=== PATIENT | female | born 1975 | race Caucasian/White ===

== ENCOUNTER 2018-02-16 17:45 | Emergency (ER) | payer MEDICAID, SELFPAY ==
[2018-02-16 17:45] VITALS: BP 159/93; PULSE 135; RESP 18; TEMP 37.2; O2SAT 99; BMI 30.8
[2018-02-16 17:52] VITALS: BP 150/71; PULSE 118; RESP 14; O2SAT 99
[2018-02-16 18:50] LABS: Absolute Neutrophil Count 5.4 X10^3/uL (2.0-7.7); Basophil# 0.04 X10^3/uL; Basophil% 0.4 % (0-1); Eosinophil# 0.36 X10^3/uL; Hematocrit 40.3 % (37-47); Hemoglobin 13.3 g/dl (12.0-15.0); Lymphocyte % 28.1 % (19-41); Mean Corpuscular Hgb 29.8 pg (27.0-32.0); Mean Corpuscular Volume 90.4 fL (81-99); Mean Platelet Vol. 10.2 fl (6.2-12.0); Monocyte# 0.54 X10^3/uL; Monocyte% 6.1 % (0-10); Neutrophil # 5.43 X10^3/uL (2.7-7.7); Neutrophil % 61.2 % (47-70); Platelet Count 367 K/mm3 (150-450); RBC Distribution Width CV 12.2 % (11.6-14.6); Red Blood Count 4.46 M/mm3 (4.2-5.4); White Blood Count 8.9 K/mm3 (4.4-11.0)
[2018-02-16 18:53] LABS: AST(SGOT) 16 U/L (15-37); Alanine Aminotransfer ALT/SGPT 31 U/L (13-56); Albumin, Serum 3.8 g/dL (3.2-5.0); Alkaline Phosphatase 93 U/L (45-117); Anion Gap 7 (5-15); BUN 14 mg/dL (7-18); BUN/Creat Ratio 14.8 RATIO (10-20); Calcium,Total 8.8 mg/dL (8.5-10.1); Chloride 112 mmol/L (98-107); Creatinine, Serum 0.95 mg/dL (0.55-1.02); EST Glomerular Filtration Rate 69 mL/min (>60); Est Glom Filt Rate - Afr Amer 84 mL/min (>60); Estimated Creatinine Clearance 56.54 ml/min; Glucose 102 mg/dL (74-106); Potassium 3.4 mmol/L (3.5-5.1); Protein, Total 7.8 g/dL (6.4-8.2); Sodium Level 142 mmol/L (136-145)
[2018-02-16 18:58] LABS: POSITIVE COUNT NO; POSITIVE DIFFERENTIAL NO; POSITIVE MORPHOLOGY NO
[2018-02-16 19:03] LABS: Pregnancy, Serum, hCG Quali. NEGATIVE Negative (0-9 Nonpreg)
[2018-02-16 19:05] LABS: Amphetamine Urine VISTA NEGATIVE (<1000 ng/mL); Barbiturate Urine VISTA NEGATIVE (< 200 ng/mL); Benzodiazepine Urine VISTA NEGATIVE (< 200 ng/mL); Cocaine Urine VISTA NEGATIVE (< 300 ng/mL); Ecstacy Urine VISTA NEGATIVE (< 500 ng/mL); Methadone Urine VISTA NEGATIVE (< 300 ng/mL); PCP Urine VISTA NEGATIVE (< 25 ng/mL); THC Urine VISTA NEGATIVE (< 50 ng/mL); Vista UDS pH Range 6
--- NOTE | 2018-02-16 20:02 | ED.VISSUMM ---
- ER Visit Summary Date of Service: 02/16/18 Chief Complaint: Depression History of Present Illness: The patient is a 42 F with a history of depression who was sent in by crisis. She states that she just could not cope anymore she made statements such as I did not feel like I wanted to live anymore. She stated everything is meaningless. However she is not suicidal she does not feel she is a risk to herself she had no suicidal plan. No thoughts of any harm to anyone else. Crisis center in for evaluation. Physical Examination: Heart rate 118 Resting comfortably no distress Heart regular tachycardia Lungs are clear Abdomen soft Alert Patient does appear depressed and has a blunted affect but denies suicidal or homicidal thoughts Test Results: Laboratory studies are unremarkable including urine drug screen and serum alcohol. Emergency Department Course and Treatment: She was evaluated by crisis here. We do not feel that she is actively suicidal or risk to herself but she does appear significantly depressed. Crisis will call her psychiatrist to try to arrange for a closer outpatient follow-up and will also set up outpatient follow-up with her therapist. We do believe the patient can safely be discharged home. She is calling for a ride. Treatment Plan: [] Disposition: Discharge Impression: Depression This note was generated with [employer] dictation software. It may contain incorrect words, spelling, and punctuation that were not noted in review of the chart prior to signing ED Disposition - Plan for ED Patient: Chief Complaint: Suicidal Referrals: Yeny Franks MD [Primary Care Provider] -
--- NOTE | 2018-02-16 20:04 | ED.DEP ---
ED Disposition - Plan for ED Patient: Chief Complaint: Suicidal Instructions: ED Depression Referrals: Yeny Franks MD [Primary Care Provider] -
[2018-02-16 20:24] VITALS: BP 147/64; PULSE 73; RESP 16; O2SAT 100
== END 2018-02-16 20:25 | disposition home or self-care (01) ==
PROVIDERS: Emergency Provider Emergency Medicine; Family Provider Family Medicine; PCP Family Medicine
DX: F32.9 Major depressive disorder, single episode, unspecified (principal); F41.9 Anxiety disorder, unspecified
CPT/HCPCS: 80053; 80307; 80320; 84703; 85025; 99283; G0480

== ENCOUNTER 2018-03-24 09:00 | Outpatient (RCR) | payer MEDICAID, SELFPAY ==
--- NOTE | 2018-03-24 10:33 | BH.MTP ---
Master Treatment Plan - Patient Information Program Physician:: Samara Lux Primary Therapist:: ZAFAR Galvan - Estimated LOS Estimated LOS (in weeks):: 6 Problem/Goal #1 - Problem/Goal #1 Description of Barriers: Client expresses she has a poor support system as client believes supports are pressuring or do not understand client's mental health needs. She reports living alone which at times leads client to isolate. Client is Jay[place] and indicates navigating daily life outside of the [facility] cultural environment can be stressful. Client reports multiple psychosocial stressors related to recently being excommunicated from the [employer] and is experiencing intrusive thoughts and ruminating anxiety, as well as daily panic attacks as a result. Client additionally is uncomfortable around individuals identifying as male which could be a barrier to treatment as there are both male staff and clients in the IOP program. Client has difficulties in managing her emotions when becoming overwhelmed which often results in panic or emotional outbursts. Functional Impact: Client reports increased ruminating thoughts, daily panic attacks, difficulties managing emotions, irritability, and avoidance, as well as fleeting suicidal ideation which have impacted ability to function at baseline. 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 Client experiences difficulties in making her own decisions and communicating with others which impacts client stress and anxiety levels leading to increased feelings of being overwhelmed. Goal Relevant Strengths/Supports: Client is intelligent and indicates motivation to improve mental health symptoms. She is involved with [employer] and seeks regular individual therapy on an outpatient basis. Client is mostly receptive to feedback and expresses desire to learn strategies to better regulate emotions. Problem/Goal #2 - Problem/Goal #2 Description of Barriers: Client expresses she has a poor support system as client believes supports are pressuring or do not understand client's mental health needs. She reports living alone which at times leads client to isolate. Client is Jay[place] and indicates navigating daily life outside of the [facility] cultural environment can be stressful. Client reports multiple psychosocial stressors related to recently being excommunicated from the [employer] and is experiencing intrusive thoughts and ruminating anxiety, as well as daily panic attacks as a result. Client additionally is uncomfortable around individuals identifying as male which could be a barrier to treatment as there are both male staff and clients in the IOP program. Client has difficulties in managing her emotions when becoming overwhelmed which often results in panic or emotional outbursts. Functional Impact: Client reports increased ruminating thoughts, daily panic attacks, difficulties managing emotions, irritability, and avoidance, as well as fleeting suicidal ideation which have impacted ability to function at baseline. 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 Client experiences difficulties in making her own decisions and communicating with others which impacts client stress and anxiety levels leading to increased feelings of being overwhelmed. Goal Relevant Strengths/Supports: Client is intelligent and indicates motivation to improve mental health symptoms. She is involved with [employer] [place] and seeks regular individual therapy on an outpatient basis. Client is mostly receptive to feedback and expresses desire to learn strategies to better regulate emotions.
--- NOTE | 2018-03-24 11:55 | BH.SGPN ---
Service Group Progress Note - Session Psychotherapy Session #1 Date Open:: 03/24/18 Time Started:: 09:17 Time Stopped:: 10:07 Targeted Problem #:: 1 Type of Group:: Process - 4 participants Goal of Group:: The goal of group was to check-in on clients mood, stressors and positives, review homework and introduce the topic of the day. Client Response/Progress/Benefit:: Client new to IOP program and is adjusting to the treatent environment. She was initially able to remain attentive as fellow participants processed their thoughts, feelings, and emotions. Client however became distracted by her own thoughts as the group progressed and placed her head in her lap. SHe declined to share with the group as client indicated feeling overwhelmed. Client benefitted from the safe and enviting environment of the group. She woulde do well to work on challenging herself to open up and express current thoughts and feelings with the group. Client recommended continued IOP to maintain stability, increase client comfort levels, and aid Client in building healthy stress management and communication styles. Eye Contact:: Avoidant Motor Activity:: Other - Client had her head down in her lap and close body language throughout. Appearance:: Casual Speech:: Appropriate, Other - Client did not share with the group nor speak throughout session as she indicated being overwhelmed. Mood:: Anxious, Depressed Affect:: Constricted Thoughts:: Linear, Logical, No evidence of hallucinations/delusions noted Staff Interventions:: Therapist used open-ended questions to elicit information about client's current stressors and mood state. Therapist was supportive by using active listening and reflection. Therapist utilized a quote related to confidence as an aid in introducing the topic of the day and facilitated discussion of quote.
--- NOTE | 2018-03-24 12:19 | BH.SGPN_ITS ---
Service Group Progress Note - Session Psychotherapy Session #1 Date Open:: 03/24/18 Time Started:: 09:17 Time Stopped:: 10:07 Targeted Problem #:: 1 Type of Group:: Process - 4 participants Goal of Group:: The goal of group was to check-in on client?s mood, stressors and positives, review homework and introduce the topic of the day. Client Response/Progress/Benefit:: Client new to IOP program and is adjusting to the treatent environment. She was initially able to remain attentive as fellow participants processed their thoughts, feelings, and emotions. Client however became distracted by her own thoughts as the group progressed and placed her head in her lap. SHe declined to share with the group as client indicated feeling overwhelmed. Client benefitted from the safe and enviting environment of the group. She woulde do well to work on challenging herself to open up and express current thoughts and feelings with the group. Client recommended continued IOP to maintain stability, increase client comfort levels , and aid Client in building healthy stress management and communication styles. Eye Contact:: Avoidant Motor Activity:: Other - Client had her head down in her lap and close body language throughout. Appearance:: Casual Speech:: Appropriate, Other - Client did not share with the group nor speak throughout session as she indicated being overwhelmed. Mood:: Anxious, Depressed Affect:: Constricted Thoughts:: Linear, Logical, No evidence of hallucinations/delusions noted Staff Interventions:: Therapist used open-ended questions to elicit information about client's current stressors and mood state. Therapist was supportive by using active listening and reflection. Therapist utilized a quote related to confidence as an aid in introducing the topic of the day and facilitated discussion of quote.
--- NOTE | 2018-03-24 14:35 | BH.SGPN ---
Service Group Progress Note - Session Psychotherapy Session #3 Date Open:: 03/24/18 Time Started:: 11:25 Time Stopped:: 12:15 Targeted Problem #:: 1 Type of Group:: Functional Skills Development Goal of Group:: To increase understanding of communication and the various types of communication. Another goal was to increase understanding of impact communication styles can have. Client Response/Progress/Benefit:: Pt passive participant. Pt identified she most often is a passive communicator, but could not identify how this style of communication is helpful or harmful to her. Pt elected to not participate in the activity and was quiet the remainder of group. Seemed to benefit from learning about importance of specific communication skills. Pt's first day in program, which could contribute to limited contributions during group. Eye Contact:: Poor Motor Activity:: Appropriate Appearance:: Neat Speech:: Soft Mood:: Depressed Affect:: Flat Thoughts:: Linear, No evidence of hallucinations/delusions noted Staff Interventions:: Therapist facilitated the group discussion about communication and explained the different types of communication. Therapist assisted group members in connecting the communication styles to the way they communicate and impact the communication style has on their relationships. Therapist provided support by using active listening and providing feedback.
--- NOTE | 2018-03-24 15:31 | BH.MDN ---
Multi-Disciplinary Note - Note 60-min Individual Time Started:: 10:15 Date: 03/24/18 Purpose of session/treatment goals addressed:: The purpose of this session was to begin building rapport with Client as well as address Client concerns regarding treatment setting. Another goal was to gather additional information regarding current symptoms, stressors, and means for coping, as well as identify Client supports. Began treatment goal planning. Eye Contact:: Avoidant Motor Activity:: Restless Appearance:: Casual Speech:: Appropriate Mood:: Anxious, Depressed Affect:: Constricted Thoughts:: Other - Client at times appeared to be experiencing circumstantial thought, No evidence of hallucinations/delusions noted Staff Interventions:: Therapist asked open-ended and clarifying questions to gather information regarding client current symptoms, stressors, identified supports, and current means for coping. Used reflective listening and empathic responses as Client discussed current psychosocial stressors and circumstances leading to admission, as well as concerns regarding treatment environment. Used collaborative problem solving to help ease Client concerns about treatment and motivational-interviewing techniques to begin identifying Client potential barriers and goals for treatment. Client Response:: Therapist suggested Client meet following first group as Client had struggled with remaining engaged and indicated feeling overwhelmed. Client was receptive of meeting individually. She discussed difficulties in remaining present or taking in information discussed in group as her thoughts are consumed by other stressors. Client explained that she was recently ex[facility]icated from the [employer] and for the last few months she has been struggling to make the choice between remaining a member of the [facility] community and leaving the [employer]. Client indicated feeling as though she is being told what to do by too many people which has added to her stress but she is too overwhelmed to decide on her own. Client reports concerns that leaving my culture would negatively impact her relationship with her parents and fears that if she chose to do so she would go to [facility]. CLient able to express some insight into the impact her current ruminations and stressors have had on overall mental health. She indicates struggling with worsening depression and fleeting thoughts of which has resulted in two inpatient hospitalizations. Currently denies active SI, plan, or intent. Client indicates feeling unsure as to what she would like to work on while in treatment but expressed a desire to decrease anxiety levels and increase positive supports. Client able to return to [facility] group following session. Risks/Concerns:: Client denies any active Suicidal Ideation, plan, or intent as of this date, 03/24/18. She indicates motivation to improve sx of anxiety and depression; however, expressed feeling unsure about remaining in IOP as she had difficulties connecting with others., specifically male participants. Client future oriented as she shared plans to clean a house tomorrow and see her therapist . She is aware of and willing to access the local crisis resources available. Progress Toward Goals/Plan:: Little progress made as CLient is new to IOP program and is still adjusting to treatment setting. She expressed increased anxiety while in the same setting as men which may be a barrier to treatment as some participants are male. Current plan is for client to remain in IOP program in order to begin developing skills for decreasing anxiety and depression. CLient is willing to continue to work with this therapist on effective decision making and communication strategies as well as emotion regulation skills. Time Stopped:: 11:15
--- NOTE | 2018-03-24 16:31 | BH.MDN_ITS ---
Multi-Disciplinary Note - Note 60-min Individual Time Started:: 10:15 Date: 03/24/18 Purpose of session/treatment goals addressed:: The purpose of this session was to begin building rapport with Client as well as address Client concerns regarding treatment setting. Another goal was to gather additional information regarding current symptoms, stressors, and means for coping, as well as identify Client supports. Began treatment goal planning. Eye Contact:: Avoidant Motor Activity:: Restless Appearance:: Casual Speech:: Appropriate Mood:: Anxious, Depressed Affect:: Constricted Thoughts:: Other - Client at times appeared to be experiencing circumstantial thought, No evidence of hallucinations/delusions noted Staff Interventions:: Therapist asked open-ended and clarifying questions to gather information regarding client current symptoms, stressors, identified supports, and current means for coping. Used reflective listening and empathic responses as Client discussed current psychosocial stressors and circumstances leading to admission, as well as concerns regarding treatment environment. Used collaborative problem solving to help ease Client concerns about treatment and motivational-interviewing techniques to begin identifying Client potential barriers and goals for treatment. Client Response:: Therapist suggested Client meet following first group as Client had struggled with remaining engaged and indicated feeling overwhelmed. Client was receptive of meeting individually. She discussed difficulties in remaining present or taking in information discussed in group as her thoughts are consumed by other stressors. Client explained that she was recently excommunicated from the [employer] and for the last few months she has been struggling to make the choice between remaining a member of the [facility] community and leaving the [employer]. Client indicated feeling as though she is being told what to do by too many people which has added to her stress but she is too overwhelmed to decide on her own. Client reports concerns that leaving my culture would negatively impact her relationship with her parents and fears that if she chose to do so she would go to [facility]. CLient able to express some insight into the impact her current ruminations and stressors have had on overall mental health. She indicates struggling with worsening depression and fleeting thoughts of which has resulted in two inpatient hospitalizations. Currently denies active SI, plan, or intent. Client indicates feeling unsure as to what she would like to work on while in treatment but expressed a desire to decrease anxiety levels and increase positive supports. Client able to return to [facility] group following session. Risks/Concerns:: Client denies any active Suicidal Ideation, plan, or intent as of this date, 03/24/18. She indicates motivation to improve sx of anxiety and depression; however, expressed feeling unsure about remaining in IOP as she had difficulties connecting with others., specifically male participants. Client future oriented as she shared plans to clean a house tomorrow and see her therapist . She is aware of and willing to access the local crisis resources available. Progress Toward Goals/Plan:: Little progress made as CLient is new to IOP program and is still adjusting to treatment setting. She expressed increased anxiety while in the same setting as men which may be a barrier to treatment as some participants are male. Current plan is for client to remain in IOP program in order to begin developing skills for decreasing anxiety and depression. CLient is willing to continue to work with this therapist on effective decision making and communication strategies as well as emotion regulation skills. Time Stopped:: 11:15
--- NOTE | 2018-03-26 11:01 | BH.MTP_ITS ---
Master Treatment Plan - Patient Information Program Physician:: Samara Lux Primary Therapist:: ZAFAR Galvan - Estimated LOS Estimated LOS (in weeks):: 6 Problem/Goal #1 - Problem/Goal #1 Description of Barriers: Client expresses she has a poor support system as client believes supports are pressuring or do not understand client's mental health needs. She reports living alone which at times leads client to isolate. Client is Hinduism and indicates navigating daily life outside of the [employer] cultural environment can be stressful. Client reports multiple psychosocial stressors related to recently being excommunicated from the [employer] and is experiencing intrusive thoughts and ruminating anxiety, as well as daily panic attacks as a result. Client additionally is uncomfortable around individuals identifying as male which could be a barrier to treatment as there are both male staff and clients in the IOP program. Client has difficulties in managing her emotions when becoming overwhelmed which often results in panic or emotional outbursts. Functional Impact: Client reports increased ruminating thoughts, daily panic attacks, difficulties managing emotions, irritability, and avoidance, as well as fleeting suicidal ideation which have impacted ability to function at baseline. 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 Client experiences difficulties in making her own decisions and communicating with others which impacts client stress and anxiety levels leading to increased feelings of being overwhelmed. Goal Relevant Strengths/Supports: Client is intelligent and indicates motivation to improve mental health symptoms. She is involved with [employer] and seeks regular individual therapy on an outpatient basis. Client is mostly receptive to feedback and expresses desire to learn strategies to better regulate emotions. Problem/Goal #2 - Problem/Goal #2 Description of Barriers: Client expresses she has a poor support system as client believes supports are pressuring or do not understand client's mental health needs. She reports living alone which at times leads client to isolate. C lient is Hinduism and indicates navigating daily life outside of the [employer] cultural environment can be stressful. Client reports multiple psychosocial stressors related to recently being excommunicated from the [employer] and is experiencing intrusive thoughts and ruminating anxiety, as well as daily panic attacks as a result. Client additionally is uncomfortable around individuals identifying as male which could be a barrier to treatment as there are both male staff and clients in the IOP program. Client has difficulties in managing her emotions when becoming overwhelmed which often results in panic or emotional outbursts. Functional Impact: Client reports increased ruminating thoughts, daily panic attacks, difficulties managing emotions, irritability, and avoidance, as well as fleeting suicidal ideation which have impacted ability to function at baseline. 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 Client experiences difficulties in making her own decisions and communicating with others which impacts client stress and anxiety levels leading to increased feelings of being overwhelmed. Goal Relevant Strengths/Supports: Client is intelligent and indicates motivation to improve mental health symptoms. She is involved with [facility] and seeks regular individual therapy on an outpatient basis. Client is mostly receptive to feedback and expresses desire to learn strategies to better regulate emotions.
--- NOTE | 2018-03-27 11:13 | BH.SGPN ---
Service Group Progress Note - Session Psychotherapy Session #1 Date Open:: 18 - 7 group members Time Started:: 09:05 Time Stopped:: 10:10 Targeted Problem #:: 1 Type of Group:: Process Goal of Group:: The goal of today's group was to check-in with clients and review homework from previous group session. Client Response/Progress/Benefit:: Client entered the session alert and oriented, participated in an ice breaker activity, but then declined to share during her check in. Client appeared to be listening to peers as they processed emotions, challenges, and coping skills as shown by her eye contact. Client appeared to benefit from listening to insight provided by group members. Client continues to have limited participation in group which may hinder progress, to continue IOP to prevent decompensation. Eye Contact:: Other - staring at times Motor Activity:: Slowed Appearance:: Casual Mood:: Dysthymic Affect:: Flat Thoughts:: No evidence of hallucinations/delusions noted Staff Interventions:: Therapist inquired about each group members previous night and current mood state. Therapist reviewed the group members homework from previous group session with the group, asking open ended questions to get more information.
--- NOTE | 2018-03-27 11:15 | BH.NA ---
Physical Data - Vital Signs Pulse Rate: 92 Respiratory Rate: 14 Blood Pressure: 125/80 - Height/Weight Height: 1.66 m Weight:: 71.668 kg Weight in Pounds: 158.0 lbs Current Medication Compliance - Medication Compliance Do you take your medication as prescribed?: Yes Do you need assistance with taking medication?: No Have you had side effects from medication?: Yes - wt gain w/ Depakote, buspar ineffective Nutritional History - Appetite Nutritional Instructions:: If client shows signs of a swallowing problem, weight change of 10 pounds or more in the last month, or is on a diabetic diet, the physician will review and request a dietitian consult, as appropriate. All unintentional weight loss will be referred to the physician for decision on need for dietitian consult. Describe your appetite:: Good Have you noticed a change in your eating habits lately?: Yes - client notes she is always hungry Functional Assessment - Sleep Pattern Describe any problems with sleeping: Some difficulty falling asleep d/t rumination. Denies trouble staying asleep. - Activities Motor Activity:: Functional Sensory/Communication Assess - Hearing Problems Do you have any hearing problems?: Adequate - Communication Problems Do you have difficulty understanding what people are saying?: No Do you have trouble putting your thoughts into words or expressing what you want to say?: Yes Do people ever have trouble understanding what you say?: No What is your primary language?: Fijian Learning Assessment - Education What is your level of education?: Middle School (Gr. 6-8) Medical Problems/History - Gastrointestinal Conditions Gastrointestinal: Dyspepsia - Musculoskeletal Conditions Musculoskeletal: Arthritis - osteoarthritis, unspecified - Pain Assessment Do you have acute or chronic pain?: No - Female Reproductive Do you think you may be ?: No Number of pregnancies:: 0 Number of children:: 0 Have you reached menopause?: No Do you have any history of breast disease?: No Surgical History - Surgical History Have you had any surgeries? If so, list type and date:: No Substance Abuse - Substance Abuse Please describe substance abuse in the last 30 days:: Client denies tobacco, illicit substance, and ETOH use Mental Status Summary - Mental Status Significant Findings/Observations on Appearance and Mood:: Alert and oriented x4 and cooperative with interview. She makes fair eye contact. Normal activity. Appropriate hygiene and grooming with casual, traditional Jay[place] attire. Speech is clear and of regular rate and volume. Moderate depression and anxiety. Flat affect. Blocking process and circumstantial associations. Fair-poor knowledge. No symptoms of delusions. Denies hallucinations and HI. She has had frequency passive thoughts of , but denies SI. Suicide Assessment - Suicidal Ideation Are you currently or have you been suicidal in the past?: Yes Suicidal Intentional Rating Scale (SIRS): Current suicidal thoughts/No plan/Contracts for safety - intermittent passive thoughts of - denies any specific plan or intent for suicide Physician Notification: If Active suicidal thoughts/Will not contract for safety is checked, contact physician and document in the Physician Notification section below. Past Psychiatric History - MH Treatment Hx Past Psychiatric Medications:: Klonopin, Depakote, Buspar, Cymbalta, Ativan Fall Risk Assessment - Age Age: Less than 60 - Mental Status Mental Status: Willing & able to ask for assistance when needed - Physical Status Physical Status: No problems - Impairments Impairments: None - Elimination Elimination: Continent AND independent - Gait or Balance Gait or Balance: Walks independently - Hx of Falls History of falls in the past 6 months: No known history - Medications/Substances Psychotropics:: Antidepressants, Anxiolytics (e.g. benzodiazepines) Medications/substances used within the past 24 hours or ordered to administer: 1-2 of the medications/substances listed above - Total Score Total Points:: 1 Physician Notification - Physician Notification Physician Notified: Megan Lux Method of Notification: Face to Face Comments: treatment planning discussion RN Summary of Impressions - Impressions Recommendations: Include psychiatric and medical issues, treatment planning recommendations, and discharge planning needs. Impressions: Psychiatric Issues: MDD, OCD, borderline PD Impression: General Medical Conditions: N/A - Level of Care How do the client's current symptoms and functional deficits support need for this level of care?: Client endorses decline in mental health for the past several months after being excommunicated from her [employer] due to an inappropriate relationship with a man she met at the [employer]. She describes a limited support system and an internal struggle regarding her lutheran. Client is also having conflict with housing and issues with her landlord. She has been unable to work recently, has been isolating, and describes overwhelming anxiety. She is unable to fall asleep some nights due to rumination. IOP will promote gains and provide social interaction while preventing further decompensation.
--- NOTE | 2018-03-27 11:28 | BH.SGPN_ITS ---
Service Group Progress Note - Session Psychotherapy Session #1 Date Open:: 18 - 7 group members Time Started:: 09:05 Time Stopped:: 10:10 Targeted Problem #:: 1 Type of Group:: Process Goal of Group:: The goal of today's group was to check-in with clients and review homework from previous group session. Client Response/Progress/Benefit:: Client entered the session alert and oriented , participated in an ice breaker activity, but then declined to share during her check in. Client appeared to be listening to peers as they processed emotions, challenges, and coping skills as shown by her eye contact. Client appeared to benefit from listening to insight provided by group members. Client continues to have limited participation in group which may hinder progress, to continue IOP to prevent decompensation. Eye Contact:: Other - staring at times Motor Activity:: Slowed Appearance:: Casual Mood:: Dysthymic Affect:: Flat Thoughts:: No evidence of hallucinations/delusions noted Staff Interventions:: Therapist inquired about each group member?s previous night and current mood state. Therapist reviewed the group member?s homework from previous group session with the group, asking open ended questions to get more information.
--- NOTE | 2018-03-27 12:35 | PCM.HP.BLA ---
History and Physical Identifying information Patient is a 42-year-old single female with history of depression anxiety and OCD, who presents to the behavioral medicine [facility] with chief complaint of I need extra therapy. History is been obtained per interview with patient, discussion with staff, review of chart. Case discussed with treatment team. History of present illness Patient is a 42-year-old female with a long-standing history of anxiety and depression since childhood. She has had multiple previous psychiatric hospitalizations and history of 14 month residential treatment. She has had increased depression and anxiety over the past 2 weeks associated with tumultuous relationships and feelings of abandonment. She reports she was excommunicated from her episcopalian on Friday. She endorses depressed mood with anhedonia crying spells decreased energy and passive thoughts of suicide. Denies suicide plan or intent. Feels able to maintain safety. Reports her sleep is variable she has had increased overall urges to sleep. She stays awake at night sometimes due to her anxiety. She states that she stays awake at night standing in front of the mirror picking at her scalp. She has multiple scars from picking. She generally attempts to sleep from 11 PM to 7:30 AM. Appetite is increased. She acknowledges emotional eating. She has ruminative anxiety about multiple issues. She has panic attacks with shortness of breath and heart palpitations when in crowds or during funerals. She has obsessive-compulsive symptoms including checking behaviors perfectionism and feeling a need for things to be stem shaper according to size shape and color. She feels that her OCD symptoms consume 1-2 hours per day. She denies history of symptoms consistent with giancarlo or bipolar disorder. Past psychiatric history Patient reports previous diagnosis of depression anxiety and OCD. She has had multiple previous psychiatric hospitalizations including 2 or 3 hospitalizations at [facility] and her most recent hospitalization in 2012 at [facility]. She has completed 14 months of residential treatment at [facility] and [facility]. She denies previous suicide attempts. She has seen Dr. noelle cifuentes for 3 years. She has a counselor Mere whom she is seen for 3 years. Substance use history Denies use of alcohol or illicit drugs. Denies smoking cigarettes. Past medical history Pruritus scalp-diagnosed by [facility] herbalist doctor as liver hormone imbalance but diagnosed by commission broker as dermatitis. Sinusitis Denies history of seizure or head injury Review of systems No fevers chills nausea vomiting chest pain dyspnea. Multiple scars scalp from picking. All other systems reviewed and negative except as above. Allergies no known medical allergies Current medications Cymbalta 90 mg daily Lorazepam 1 mg nightly and 1 mg as needed daily for anxiety which she takes not every day. Family medical psychiatric history Mother is history of anxiety. Reports anxiety is in mom's family. Sister has depression and anxiety treated with Klonopin. Developmental social history Patient was born and raised in [place] and [place]. She is the oldest of 8 children. She has 5 sisters and 2 brothers. She grew up with her parents and her siblings. Attended school to the eighth grade as she is [employer]. In 2013 she stepped out on my own. She is held different types of jobs. She acknowledges difficulty keeping employment due to her mental health symptoms. She is currently working [employer] once per week. She has not had contact with her family since 2012. She lives alone above a episcopalian. She is not . She does not have children. Legal history none Mental status exam vital signs reviewed per nursing database and discussed with nursing. Alert and oriented. No acute distress. Ambulatory with normal gait and station. Casually dressed and groomed. Appropriate hygiene. Cooperative with interview. Good eye contact. No psychomotor agitation or retardation. Mood depressed. Affect congruent. Speech is clear and of regular rate and volume. Language fluent. Thought process organized. Associations logical. Thought content significant for ruminative anxiety and themes of depression. Passive suicidal ideation. No suicide plan or intent. Feels able to maintain safety. No homicidal ideation related to her detected. No evidence of psychosis related to her detected. Immediate recent and remote memory grossly intact. Attention and concentration are fair. Estimated intelligence fund of knowledge average. Judgment and insight are limited to fair. Labs and testing TSH normal within the past year per patient. Lab work will be requested from primary care physician. Further lab work will be obtained as needed. Diagnosis Major depressive disorder recurrent severe F 33.2 Anxiety unspecified OCD Cluster B personality traits Plan Admit to IOP as the structured setting is necessary to prevent decompensation. Risks benefits alternatives of medications discussed with patient. Patient acknowledges understanding. Continue Cymbalta 90 mg p.o. daily. Encouraged to limit Lorazepam use to as needed. Risks of benzodiazepines including tolerance and addiction discussed with patient. Start Atarax 50 mg p.o. twice daily as needed anxiety. Dispense #60 with 1 refill. Continue follow-up with Dr. Colbert and Mere as outpatient providers. Encouraged follow-up with [facility] physician. Further lab work will be obtained as needed. Patient acknowledges understanding and is in agreement with plan. Feels able to maintain safety. Agrees to seek help or emergency care if feeling unsafe to self or others.
--- NOTE | 2018-03-27 13:09 | HP.PCM_ITS ---
History and Physical Identifying information Patient is a 42-year-old single female with history of depression anxiety and OCD, who presents to the behavioral medicine [facility] with chief complaint of I need extra therapy. History is been obtained per interview with patient, discussion with staff, review of chart. Case discussed with treatment team. History of present illness Patient is a 42-year-old female with a long-standing history of anxiety and depression since childhood. She has had multiple previous psychiatric hospitalizations and history of 14 month residential treatment. She has had increased depression and anxiety over the past 2 weeks associated with tumultuous relationships and feelings of abandonment. She reports she was excommunicated from her congregational on Friday. She endorses depressed mood with anhedonia crying spells decreased energy and passive thoughts of suicide. Denies suicide plan or intent. Feels able to maintain safety. Reports her sleep is variable she has had increased overall urges to sleep. She stays awake at night sometimes due to her anxiety. She states that she stays awake at night standing in front of the mirror picking at her scalp. She has multiple scars from picking. She generally attempts to sleep from 11 PM to 7: 30 AM. Appetite is increased. She acknowledges emotional eating. She has ruminative anxiety about multiple issues. She has panic attacks with shortness of breath and heart palpitations when in crowds or during funerals. She has obsessive-compulsive symptoms including checking behaviors perfectionism and feeling a need for things to be human service specialist according to size shape and color. She feels that her OCD symptoms consume 1-2 hours per day. She denies history of symptoms consistent with giancarlo or bipolar disorder. Past psychiatric history Patient reports previous diagnosis of depression anxiety and OCD. She has had multiple previous psychiatric hospitalizations including 2 or 3 hospitalizations at [facility] and her most recent hospitalization in 2012 at [facility]. She has completed 14 months of residential treatment at [facility] and [facility]. She denies previous suicide attempts. She has seen Dr. noelle cifuentes for 3 years. She has a counselor Mere whom she is seen for 3 years. Substance use history Denies use of alcohol or illicit drugs. Denies smoking cigarettes. Past medical history Pruritus scalp-diagnosed by [facility] herbalist doctor as liver hormone imbalance but diagnosed by tool coordinator as dermatitis. Sinusitis Denies history of seizure or head injury Review of systems No fevers chills nausea vomiting chest pain dyspnea. Multiple scars scalp from picking. All other systems reviewed and negative except as above. Allergies no known medical allergies Current medications Cymbalta 90 mg daily Lorazepam 1 mg nightly and 1 mg as needed daily for anxiety which she takes not every day. Family medical psychiatric history Mother is history of anxiety. Reports anxiety is in mom's family. Sister has depression and anxiety treated with Klonopin. Developmental social history Patient was born and raised in [place] and [place]. She is the oldest of 8 children. She has 5 sisters and 2 brothers. She grew up with her parents and her siblings. Attended school to the eighth grade as she is [employer]. In 2013 she stepped out on my own. She is held different types of jobs. She acknowledges difficulty keeping employment due to her mental health symptoms. She is currently working [employer] once per week. She has not had contact with her family since 2012. She lives alone above a congregational. She is not . She does not have children. Legal history none Mental status exam vital signs reviewed per nursing database and discussed with nursing. Alert and oriented. No acute distress. Ambulatory with normal gait and station. Casually dressed and groomed. Appropriate hygiene. Cooperative with interview. Good eye contact. No psychomotor agitation or retardation. Mood depressed. Affect congruent. Speech is clear and of regular rate and volume. Language fluent. Thought process organized. Associations logical. Thought content significant for ruminative anxiety and themes of depression. Passive suicidal ideation. No suicide plan or intent. Feels able to maintain safety. No homicidal ideation related to her detected. No evidence of psychosis related to her detected. Immediate recent and remote memory grossly intact. Attention and concentration are fair. Estimated intelligence fund of knowledge average. Judgment and insight are limited to fair. Labs and testing TSH normal within the past year per patient. Lab work will be requested from primary care physician. Further lab work will be obtained as needed. Diagnosis Major depressive disorder recurrent severe F 33.2 Anxiety unspecified OCD Cluster B personality traits Plan Admit to IOP as the structured setting is necessary to prevent decompensation. Risks benefits alternatives of medications discussed with patient. Patient acknowledges understanding. Continue Cymbalta 90 mg p.o. daily. Encouraged to limit Lorazepam use to as needed. Risks of benzodiazepines including tolerance and addiction discussed with patient. Start Atarax 50 mg p.o. twice daily as needed anxiety. Dispense #60 with 1 refill. Continue follow-up with Dr. Colbert and Mere as outpatient providers. Encouraged follow-up with [facility] physician. Further lab work will be obtained as needed. Patient acknowledges understanding and is in agreement with plan. Feels able to maintain safety. Agrees to seek help or emergency care if feeling unsafe to self or others.
--- NOTE | 2018-03-27 13:09 | BH.DR.ITP ---
Initial Treatment Plan - Patient Information Visit Information: ADMISSION DATE: EXPECTED LOS: 4-6 weeks Diagnoses:: Major depressive disorder recurrent severe F 33.2. Anxiety unspecified. Obsessive-compulsive disorder - Problems/Symptoms Problem #1:: Depression Symptom:: Sad mood, anhedonia, decreased energy, biologic disruption of sleep and appetite, suicidal ideation Problem #2:: Anxiety Symptom:: Rumination, panic attacks, obsessions and compulsions.
--- NOTE | 2018-03-27 15:48 | BH.NA_ITS ---
Physical Data - Vital Signs Pulse Rate: 92 Respiratory Rate: 14 Blood Pressure: 125/80 - Height/Weight Height: 1.66 m Weight:: 71.668 kg Weight in Pounds: 158.0 lbs Current Medication Compliance - Medication Compliance Do you take your medication as prescribed?: Yes Do you need assistance with taking medication?: No Have you had side effects from medication?: Yes - wt gain w/ Depakote, buspar ineffective Nutritional History - Appetite Nutritional Instructions:: If client shows signs of a swallowing problem, weight change of 10 pounds or more in the last month, or is on a diabetic diet, the physician will review and request a dietitian consult, as appropriate. All unintentional weight loss will be referred to the physician for decision on need for dietitian consult. Describe your appetite:: Good Have you noticed a change in your eating habits lately?: Yes - client notes she is always hungry Functional Assessment - Sleep Pattern Describe any problems with sleeping: Some difficulty falling asleep d/t rumination. Denies trouble staying asleep. - Activities Motor Activity:: Functional Sensory/Communication Assess - Hearing Problems Do you have any hearing problems?: Adequate - Communication Problems Do you have difficulty understanding what people are saying?: No Do you have trouble putting your thoughts into words or expressing what you want to say?: Yes Do people ever have trouble understanding what you say?: No What is your primary language?: [place] Islander Learning Assessment - Education What is your level of education?: Middle School (Gr. 6-8) Medical Problems/History - Gastrointestinal Conditions Gastrointestinal: Dyspepsia - Musculoskeletal Conditions Musculoskeletal: Arthritis - osteoarthritis, unspecified - Pain Assessment Do you have acute or chronic pain?: No - Female Reproductive Do you think you may be ?: No Number of pregnancies:: 0 Number of children:: 0 Have you reached menopause?: No Do you have any history of breast disease?: No Surgical History - Surgical History Have you had any surgeries? If so, list type and date:: No Substance Abuse - Substance Abuse Please describe substance abuse in the last 30 days:: Client denies tobacco, illicit substance, and ETOH use Mental Status Summary - Mental Status Significant Findings/Observations on Appearance and Mood:: Alert and oriented x4 and cooperative with interview. She makes fair eye contact. Normal activity. Appropriate hygiene and grooming with casual, traditional [employer] attire. Speech is clear and of regular rate and volume. Moderate depression and anxiety. Flat affect. Blocking process and circumstantial associations. Fair-poor knowledge. No symptoms of delusions. Denies hallucinations and HI. She has had frequency passive thoughts of , but denies SI. Suicide Assessment - Suicidal Ideation Are you currently or have you been suicidal in the past?: Yes Suicidal Intentional Rating Scale (SIRS): Current suicidal thoughts/No plan/ Contracts for safety - intermittent passive thoughts of - denies any specific plan or intent for suicide Physician Notification: If Active suicidal thoughts/Will not contract for safety is checked, contact physician and document in the Physician Notification section below. Past Psychiatric History - MH Treatment Hx Past Psychiatric Medications:: Klonopin, Depakote, Buspar, Cymbalta, Ativan Fall Risk Assessment - Age Age: Less than 60 - Mental Status Mental Status: Willing & able to ask for assistance when needed - Physical Status Physical Status: No problems - Impairments Impairments: None - Elimination Elimination: Continent AND independent - Gait or Balance Gait or Balance: Walks independently - Hx of Falls History of falls in the past 6 months: No known history - Medications/Substances Psychotropics:: Antidepressants, Anxiolytics (e.g. benzodiazepines) Medications/substances used within the past 24 hours or ordered to administer: 1 -2 of the medications/substances listed above - Total Score Total Points:: 1 Physician Notification - Physician Notification Physician Notified: Megan Lux Method of Notification: Face to Face Comments: treatment planning discussion RN Summary of Impressions - Impressions Recommendations: Include psychiatric and medical issues, treatment planning recommendations, and discharge planning needs. Impressions: Psychiatric Issues: MDD, OCD, borderline PD Impression: General Medical Conditions: N/A - Level of Care How do the client's current symptoms and functional deficits support need for this level of care?: Client endorses decline in mental health for the past several months after being excommunicated from her [employer] mormonism due to an inappropriate relationship with a man she met at the [employer]. She describes a limited support system and an internal struggle regarding her nondenominational. Client is also having conflict with housing and issues with her landlord. She has been unable to work recently, has been isolating, and describes overwhelming anxiety. She is unable to fall asleep some nights due to rumination. IOP will promote gains and provide social interaction while preventing further decompensation.
--- NOTE | 2018-04-10 14:11 | BH.COMM ---
Communication Note - Communication with Client Communication Note: Client cancelled group appointments scheduled for this week as she had an unexpected trip to [place]. Indicating plans to return to regular attendance on Friday04/13/18. Client has missed the past two weeks of scheduled appointments. Therapist returned client call to discuss the attendance policy and attempt to find a solution for client missed appointments in the future. Client unavailable and a discreet message was left requesting she return this therapist message. Attempted to contact client outpatient provider who was unavailable, a request for return call was left.
--- NOTE | 2018-04-15 14:11 | BH.DS ---
Discharge Summary - Demographics Date of Admission:: 03/24/18 Discharge Date: 04/15/18 Presenting Problems at Admission:: Patient is a 42-year-old single female of the [facility] kerrie with history of depression, anxiety, and OCD, who presents to the behavioral medicine [facility] with chief complaint of I need extra therapy. Client was referred to the [facility] program by outpatient therapist due to worsening symptoms of anxiety and depression following being excommunicated from her [employer] and is now deciding whether to seek repentance in order to return. Client has a history of anxiety and depression since childhood. She has had multiple previous psychiatric hospitalizations and history of a previous 14 month stay in residential treatment. At time of admission client reports ongoing rumination which has led to increased symptoms. Client endorses depressed mood with anhedonia crying spells, decreased energy and passive thoughts of suicide. Denies suicide plan or intent. CLient indicates increased overall urges to sleep but is unable to due to anxiety, increased appetite, panic attacks, increased skin picking, and intrusive ruminating thoughts making it difficult for client to focus. Discharge Diagnoses:: Major depressive disorder recurrent severe F 33.2. Anxiety unspecified. Obsessive-compulsive disorder. Reason for Discharge:: Lack of consistent attendance preventing progress. Client has had multiple no shows and cancellations due to too many other things keep popping up. She has consistently cancelled and rescheduled appoints only to cancel again. Client did not show for the last week of scheduled appointments. Client agreed to discharge and is open to returning to the program when her schedule allows for consistent, regular attendance. - Treatment Progress During Treatment & Response: Limited progress noted due to client inconsistent attendance. She reports that when in attendance she struggled with participating in group sessions due to feeling shy and uncomfortable around others. CLient indicated that this was because I am the only Jayant. She shared feeling as though others were friendly but that she could not relate. Client was however able to engage in individual session when meeting with this therapist however lack of attendance resulted in CLient only seeing therapist once. Client displayed some improvements in level of awareness regarding the consequences of isolation on mental health as well as benefits finding healthy means of coping with stress and frustrations. Issues Still to be Addressed:: Client would benefit from continuing to engage in ongoing and consistent counseling to address depressive symptoms and constant ruminative anxiety. She would benefit with special emphasis being placed on emotion regulation and effective decision making skills. Client was not functioning at baseline when she entered the program and due to erratic attendance was unable to make progress significant enough to return to a healthy baseline prior to discharge. Discharge Recommendations/Instructions:: This therapist was unable to complete full discharge planning with client due to lack of attendance. However, CLient is set up with outpatient psychiatry and counseling services as well as attends [facility] for additional supports. She is recommended ongoing outpatient therapy services and would benefit from additional case management services as well which Client can be acquired through CLient outpatient counselor at [facility]. Discharge Handout: Complete Discharge Handout with client on aftercare options and continuity of care.
--- NOTE | 2018-04-16 14:40 | BH.DS_ITS ---
Discharge Summary - Demographics Date of Admission:: 03/24/18 Discharge Date: 04/15/18 Presenting Problems at Admission:: Patient is a 42-year-old single female of the [facility] kerrie with history of depression, anxiety, and OCD, who presents to the behavioral medicine [facility] with chief complaint of I need extra therapy. Client was referred to the [facility] program by outpatient therapist due to worsening symptoms of anxiety and depression following being excommunicated from her congregational and is now deciding whether to seek repentance in order to return. Client has a history of anxiety and depression since childhood. She has had multiple previous psychiatric hospitalizations and history of a previous 14 month stay in residential treatment. At time of admission client reports ongoing rumination which has led to increased symptoms. Client endorses depressed mood with anhedonia crying spells, decreased energy and passive thoughts of suicide. Denies suicide plan or intent. CLient indicates increased overall urges to sleep but is unable to due to anxiety, increased appetite, panic attacks, increased skin picking, and intrusive ruminating thoughts making it difficult for client to focus. Discharge Diagnoses:: Major depressive disorder recurrent severe F 33.2. Anxiety unspecified. Obsessive-compulsive disorder. Reason for Discharge:: Lack of consistent attendance preventing progress. Client has had multiple no shows and cancellations due to too many other things keep popping up. She has consistently cancelled and rescheduled appoints only to cancel again. Client did not show for the last week of scheduled appointments. Client agreed to discharge and is open to returning to the program when her schedule allows for consistent, regular attendance. - Treatment Progress During Treatment & Response: Limited progress noted due to client inconsistent attendance. She reports that when in attendance she struggled with participating in group sessions due to feeling shy and uncomfortable around others. CLient indicated that this was because I am the only Jay[place]. She shared feeling as though others were friendly but that she could not relate. Client was however able to engage in individual session when meeting with this therapist however lack of attendance resulted in CLient only seeing therapist once. Client displayed some improvements in level of awareness regarding the consequences of isolation on mental health as well as benefits finding healthy means of coping with stress and frustrations. Issues Still to be Addressed:: Client would benefit from continuing to engage in ongoing and consistent counseling to address depressive symptoms and constant ruminative anxiety. She would benefit with special emphasis being placed on emotion regulation and effective decision making skills. Client was not functioning at baseline when she entered the program and due to erratic attendance was unable to make progress significant enough to return to a healthy baseline prior to discharge. Discharge Recommendations/Instructions:: This therapist was unable to complete full discharge planning with client due to lack of attendance. However, CLient is set up with outpatient psychiatry and counseling services as well as attends [facility] for additional supports. She is recommended ongoing outpatient therapy services and would benefit from additional case management services as well which Client can be acquired through CLient outpatient counselor at [facility]. Discharge Handout: Complete Discharge Handout with client on aftercare options and continuity of care.
[2018-06-12 11:53] VITALS: BP 125/80; PULSE 92; RESP 14
== END 2018-04-02 23:59 ==
LOC: BHIOP 09:00
PROVIDERS: Family Provider Family Medicine; PCP Family Medicine; Visit Provider Psychiatry & Neurology Psychiatry
DX: F33.2 Major depressive disorder, recurrent severe without psychotic features (principal); F41.9 Anxiety disorder, unspecified; F42.9 Obsessive-compulsive disorder, unspecified; Z79.899 Other long term (current) drug therapy
CPT/HCPCS: 99204; H0035; H2012; T1002; 90837

== ENCOUNTER 2018-07-06 20:55 | Outpatient (REF) | payer SELFPAY ==
[2018-07-06 22:25] LABS: Pregnancy, Serum, hCG Quali. NEGATIVE Negative (0-9 Nonpreg)
== END 2018-07-07 00:30 | disposition home or self-care (01) ==
LOC: EDREF 20:55
PROVIDERS: Emergency Medicine
DX: Z04.41 Encounter for examination and observation following alleged adult rape (principal)
CPT/HCPCS: 84703

== ENCOUNTER → 2023-04-28 | Outpatient (CLI) | payer MEDICAID, SELFPAY ==
--- NOTE | 2023-04-28 15:00 | FLU_PTH ---
PATIENT: ARASH CAMPOVERDE LOC: [facility] U#:[id number] AGE/SX: 48/F ROOM: RE04/28/[address]: Dr. Jayden Mckoy MD : 1975 BED: DIS: 04/28/2023 SPEC #: [id number] RECD: 04/28/23 15:43 STATUS: CANDIS DENISE #: [id number] IRASEMA: 04/28/23 15:[address]: Jayden Mckoy DEPT: CYTOLOGY RECD BY: Karla Stein ENTERED: 04/29/23 09:36 SP TYPE: Fluid OTHR DR: DALTON Duran Tissues: A - Thyroid gland, NOS B - Thyroid gland, NOS Procedures: Special Stain Group II Surgery Specimen Level IV Cytospin Fluid Cytology Other HEADER OPERATION: Fine needle aspiration left thyroid nodule PRE-OP DIAGNOSIS: Left thyroid nodule TISSUE SUBMITTED: A - Left thyroid nodule tissue fluid, B - Left thyroid nodule x4 slides DIAGNOSIS CYTOLOGY A. Left thyroid nodule fluid, fine needle aspiration (cytospin and cell block): Consistent with chronic lymphocytic thyroiditis in the proper clinical context, [place] Category II. Adequate for evaluation. See comment. B. Left thyroid nodule, fine needle aspiration (smears): Consistent with chronic lymphocytic thyroiditis in the proper clinical context, [place] Category II. Adequate for evaluation. See comment. SJ:donald 04/30/2023 COMMENT A & B. Correlation with clinical, radiologic findings and appropriate follow up are necessary. The [place] System for thyroid diagnostic categorization was used in the evaluation of this case. CYTOLOGY STUDY Slides are reviewed. CYTOLOGY GROSS A - Received is 35 ml of red cloudy fluid labeled with the patient's name and and designated per the requisition as Left thyroid nodule. Submitted for cytology preparation including cell block. B - Received are four smears labeled with the patient's name and designated per the requisition as Left thyroid nodule. Submitted for staining. / donald 04/29/2023 TC:3 CPT: 87977 x2, [id number]
== END | disposition home or self-care (01) ==
LOC: LABSPEC 15:53
PROVIDERS: Referring Provider Surgery; Visit Provider Surgery
DX: E04.1 Nontoxic single thyroid nodule (principal)
CPT/HCPCS: 88108; 88161; 88305; 88313